=== PATIENT | male | born 1975 | race Caucasian/White ===

== ENCOUNTER 2019-12-19 14:18 | Emergency (ER) | payer MEDICARE ==
[~2019-12-19] VITALS: Ht 185.4 cm; Wt 75.5 kg
[2019-12-19 14:40] VITALS: Ht 185.4 cm; Wt 75.5 kg
[2019-12-19 19:22] LABS: BASOPHILS 0.3 % (0-2); EOSINOPHILS 1.7 % (0-7); HEMOGLOBIN 14.6 g/dL (13.5-17.5); IMMATURE GRANULOCYTES 0.1 % (0-5); LYMPHOCYTES 34.1 % (15-50); MCHC 34.8 g/dL (31.0-37.0); MCV 86.2 fL (80.0-100.0); MEAN PLATELET VOLUME 9.9 fL (7.4-10.4); MONOCYTES 7.2 % (2-11); NEUTROPHILS 56.6 % (40-80); PLATELET COUNT 205 10x3/uL (130-400); RBC 4.87 10x6/uL (4.20-6.10); RDW 14.3 % (11.5-14.5)
[2019-12-19 19:51] LABS: BILIRUBIN NEGATIVE (NEGATIVE); GLUCOSE NEGATIVE (NEGATIVE); KETONE NEGATIVE (NEGATIVE); NITRITE NEGATIVE (NEGATIVE); SPECIFIC GRAVITY 1.015 (1.005-1.020); UROBILINOGEN NORMAL (NORMAL)
[2019-12-19 19:58] LABS: UDS - AMPHET NEGATIVE QUAL (NEGATIVE); UDS - BARB NEGATIVE QUAL (NEGATIVE); UDS - BENZO NEGATIVE QUAL (NEGATIVE); UDS - COCAINE NEGATIVE QUAL (NEGATIVE); UDS - OPIATE NEGATIVE QUAL (NEGATIVE); UDS - PCP NEGATIVE QUAL (NEGATIVE); UDS - THC NEGATIVE QUAL (NEGATIVE)
[2019-12-19 20:09] LABS: CALC OSMOLALITY 272 mosm/kg (275-300); CARBON DIOXIDE 27.6 mmol/L (21.0-32.0); CHLORIDE - SERUM 100 mmol/L (98-107); GLUCOSE 95 mg/dL (74-106); POTASSIUM - SERUM 3.7 mmol/L (3.5-5.1); SODIUM 137 mmol/L (136-145); UREA NITROGEN 11 mg/dL (7-18); eGFR NON AFRICAN AMERICAN 86 mL/min (90-120)
[2019-12-19 20:15] LABS: ALBUMIN 4.6 g/dL (3.4-5.0); ALKALINE PHOSPHATASE 68 U/L (30-120); ALT (SGPT) 17 U/L (10-68); BILIRUBIN - TOTAL 0.54 mg/dL (0.2-1.3); PROTEIN - SERUM 8.4 g/dL (6.4-8.2)
[2019-12-19 20:22] VITALS: BP 112/79
--- NOTE | 2019-12-20 02:31 | NUR ---
DR CAREY NOTIFIED AND REVIEWED PT's BEHAVIOR AND ASSESSMENT RESULTS. PT IS A LOW RISK PER CHERRY. DR CAREY STATED TO GIVE RESOURCES TO PATIENT AT TIME OF DISCHARGE. NO FURTHER ORDERS AT THIS TIME. RESOURCE REVIEWED WITH PT AND HE VERBALIZED UNDERSTANDING.
== END 2019-12-19 21:58 | disposition home or self-care (01) ==
LOC: D.ER 14:18
PROVIDERS: Family Medicine
DX: F32.9 Major depressive disorder, single episode, unspecified (principal); S80.211A Abrasion, right knee, initial encounter; Z71.1 Person with feared health complaint in whom no diagnosis is made; I10 Essential (primary) hypertension; Z72.0 Tobacco use; X58.XXXA Exposure to other specified factors, initial encounter

== ENCOUNTER 2019-12-20 10:44 | Emergency (ER) | payer MEDICARE ==
[~2019-12-20] VITALS: Ht 185.4 cm; Wt 90.9 kg
[2019-12-20 10:51] VITALS: Ht 185.4 cm; Wt 90.9 kg
--- NOTE | 2019-12-20 11:29 | NUR ---
According to the suicide assessment the patient rates high and he will need a 1:1 observation. Will provide a safety plan and a suicide resource flyer.
[2019-12-20 11:31] LABS: BILIRUBIN NEGATIVE (NEGATIVE); GLUCOSE NEGATIVE (NEGATIVE); KETONE NEGATIVE (NEGATIVE); NITRITE NEGATIVE (NEGATIVE); SPECIFIC GRAVITY 1.015 (1.005-1.020); UROBILINOGEN NORMAL (NORMAL)
[2019-12-20 11:40] LABS: UDS - AMPHET NEGATIVE QUAL (NEGATIVE); UDS - BARB NEGATIVE QUAL (NEGATIVE); UDS - BENZO NEGATIVE QUAL (NEGATIVE); UDS - COCAINE NEGATIVE QUAL (NEGATIVE); UDS - OPIATE NEGATIVE QUAL (NEGATIVE); UDS - PCP NEGATIVE QUAL (NEGATIVE); UDS - THC NEGATIVE QUAL (NEGATIVE)
[2019-12-20 11:48] LABS: BASOPHILS 0.4 % (0-2); EOSINOPHILS 1.3 % (0-7); HEMATOCRIT 41.9 % (42.0-54.0); HEMOGLOBIN 14.4 g/dL (13.5-17.5); IMMATURE GRANULOCYTES 0.2 % (0-5); LYMPHOCYTES 31.9 % (15-50); MCH 29.2 pg (26.0-34.0); MCHC 34.4 g/dL (31.0-37.0); MEAN PLATELET VOLUME 9.8 fL (7.4-10.4); MONOCYTES 7.3 % (2-11); NEUTROPHILS 58.9 % (40-80); PLATELET COUNT 215 10x3/uL (130-400); RBC 4.93 10x6/uL (4.20-6.10); RDW 14.3 % (11.5-14.5); WBC 5.3 10x3/uL (4.8-10.8)
[2019-12-20 11:54] LABS: CALC OSMOLALITY 273 mosm/kg (275-300); CALCIUM 9.7 mg/dL (8.5-10.1); CARBON DIOXIDE 28.1 mmol/L (21.0-32.0); CHLORIDE - SERUM 101 mmol/L (98-107); CREATININE - SERUM 0.9 mg/dL (0.6-1.3); GLUCOSE 107 mg/dL (74-106); SODIUM 137 mmol/L (136-145); UREA NITROGEN 12 mg/dL (7-18); eGFR NON AFRICAN AMERICAN > 90 mL/min (90-120)
[2019-12-20 12:00] LABS: ALBUMIN 4.4 g/dL (3.4-5.0); ALKALINE PHOSPHATASE 68 U/L (30-120); ALT (SGPT) 16 U/L (10-68); MAGNESIUM - SERUM 2.1 mg/dL (1.8-2.4); PROTEIN - SERUM 8.2 g/dL (6.4-8.2)
[2019-12-20 14:45] VITALS: BP 114/82
== END 2019-12-20 14:54 ==
LOC: D.ER 10:44
PROVIDERS: Family Medicine
DX: R45.851 Suicidal ideations (principal); I10 Essential (primary) hypertension; Z72.0 Tobacco use